=== PATIENT | male | born 1935 | race Caucasian/White ===

== ENCOUNTER 2019-07-18 15:48 | Inpatient (IN) ==
[2019-07-18] MEDS ORDERED: NS 1,000 ML IV PRN (16:08)
[2019-07-18 18:33] LABS: ALLEN TEST YES; BE 3.3 mmoll (-3.0-3.0); BLOOD TYPE ARTERIAL; HCO3-(ACT) 27.5 mmoll (20.0-26.0); O2(CT) 13.1 mL/dL (15.0-23.0); PCO2(98.6) 35 mmHg (35-45); PO2(98.6) 80 mmHg (60-100); SAMPLE BLOOD; SAO2 98.9 % (95.0-100.0); THB 9.7 g/dL (11.5-17.4); pH(98.6) 7.49 (7.35-7.45)
[2019-07-18 18:34] LABS: MODALITY ROOM AIR
--- NOTE | 2019-07-18 19:20 | HISTORY AND PHYSICAL ---
CHIEF COMPLAINT: Confused, disoriented, hallucinating, very weak. 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 He has been seeing Dr. Scanlon and has been undergoing chemotherapy. He has not been able to have chemotherapy in the last 2 weeks due to his progressively worsening condition. He has very extensive disease in the right upper lobe of his lung, right hilar and axillary lymphadenopathy, hepatic hypodensity. A PET scan done March 2019 revealed right upper lobe pulmonary disease, right hilar, right axillary pulmonary disease with positive nodes in the right gluteal and femoral muscles. He has had radiation to the femoral and gluteal area. He has been on palliative chemotherapy Abraxane, carboplatin and Keytruda since 05/02/2019. Today his condition worsened so severely he could not go in to see Dr. Scanlon. He had fallen in the floor. He has not eaten or drank. He is very confused and disoriented. His , who is the principal associate application developer, has really been struggling to provide care for him. He is admitted for further evaluation, treatment and consideration for hospice care. PAST MEDICAL HISTORY: Surgery. Had a radical prostatectomy in 2000. Medical illnesses. He has had the known squamous cell carcinoma of the lung as stated, severe degenerative joint disease. He has had pulmonary hypertension, chronic dyspnea, aortic dilatation with the aorta measuring 2.3 x 21 cm, mitral regurgitation, tricuspid regurgitation, chronic atrial fibrillation, longstanding hypertension. CURRENT MEDICATIONS: Include Lasix 40 mg 1 or 2 a day, aspirin 81 mg a day, Bystolic 10 mg a day, Nitrostat 0.4 mg p.r.n., Adcirca 20 mg b.i.d., Lipitor 20 mg a day, Tyvaso 9 puffs 4 times a day, Lanoxin 0.25 mg a day, Celebrex 20 mg p.r.n. ALLERGIES: To Dial soap. No known drugs. SOCIAL HISTORY: He retired from [employer]. He has 2 children 1 boy, 1 girl. Has a daughter and grandson that live with him. He stopped smoking in 1987. Occasional alcohol use. As stated allergies to no known drugs. FAMILY HISTORY: He has 1 brother living at age 93. His mother at age 83, his dad as an alcoholic of a CVA at age 60. He served in the [employer] from 1955 to 1959. PHYSICAL EXAMINATION: GENERAL: Shows a very frail appearing white male, somewhat confused and disoriented. Height 72 inches, weight 193 pounds, temperature 97 degrees, pulse 86, blood pressure 173/89. TMs are clear. Pupils equally round, reactive. Nasal mucosa is moist. Oropharynx clear. LUNGS: Show overall shallow breath sounds. In the right posterior scapular area is a very large soft tissue density, very firm in nature. ABDOMEN: Soft, nontender, no masses. HEART: With a regular rate and rhythm, 2/6 systolic ejection murmur. GENITOURINARY: Normal male. Bilaterally descended testicles. MUSCULOSKELETAL: Neurologically he is confused and disoriented as stated, he is very frail, cannot walk, cannot stand. He has marked tenting of the skin of his hands and feet. LABORATORY DATA: Pending. IMPRESSION: 1. Advanced metastatic squamous cell lung cancer. He has been undergoing palliative chemo but has been too weak to have chemo for the last 2 weeks. 2. He is now having mental status change. This could be a progression of the tumor into his brain. 3. Could also be simple dehydration/sepsis/urinary tract infection. 4. The family is very interested in pursuing hospice care. We will discuss this with the patient himself. PLAN: 1. We will discuss hospice. 2. We will obtain blood cultures, urine cultures. 3. We will start Zosyn. 4. Will attempt to get a CT of the head tonight without contrast. 5. We will encourage and discuss the options of hospice with the patient. cc: Aleksnadar Austin MD [facility]
--- NOTE | 2019-07-18 19:24 | Diag Imaging Result Doc PS360 ---
EXAM: CHEST-PORTABLE 07/18/2019 HISTORY: dyspnea TECHNIQUE: AP portable upright at 1917 COMMENT: There is alveolar opacity in the inferior right upper lobe which was also the case on 05/05/2019. The inspiration is less optimal than on the previous study. There is a Port-A-Cath on the left with its tip in the superior vena cava which has not changed. The heart size is enlarged. This is also stable in appearance. IMPRESSION: Stable chest. Electronically signed by Sean Oro 07/18/2019 7:22 PM
[2019-07-18] MEDS ORDERED: ZOFRAN IV PRN (19:34)
[2019-07-18] MEDS: ZOSYN 3.375 GM in NS 50 ML IV SCH (19:35)
[2019-07-18 20:40] LABS: BASO# 0.02 X1000 (0.0-0.2); BASO% 0.2 % (0.0-0.8); EOS# 0.38 X1000 (0.0-0.7); EOS% 3.4 % (0.0-10.0); HEMATOCRIT 31.1 % (42.0-52.0); HEMOGLOBIN 9.3 g/dL (14.0-18.0); LYMPH# 1.02 X1000 (1.2-3.4); LYMPH% 9.1 % (20.5-51.1); MCH 28.6 PG (27-31); MCHC 29.9 g/dL (33-37); MCV 95.7 FL (81-99); MONO# 0.77 X1000 (0.11-0.59); MONO% 6.9 % (1.7-9.3); NEUT% 80.4 % (42.2-75.2); PLT 246 X1000 (130-400); RBC 3.25 XMIL (4.7-6.1); RDW 18.3 % (11.5-14.5); WBC 11.19 X1000 (4.8-10.8)
[2019-07-18 21:26] LABS: ALB/GLOB RATIO 0.6; ALBUMIN 2.5 g/dL (3.5-5.0); CALCIUM 13.5 mg/dL (8.8-10.2); CREATININE 1.5 mg/dL (0.7-1.2); POTASSIUM 5.6 mmol/L (3.5-5.1); TOTAL BILIRUBIN 0.46 mg/dL (0.20-1.00); TOTAL PROTEIN 6.6 g/dL (6.3-8.3)
[2019-07-18] MEDS: MORPHINE IV PRN (22:55)
[2019-07-18] MEDS: TYLENOL PO PRN (22:55)
[2019-07-19] MEDS: ZOSYN 3.375 GM in NS 50 ML IV SCH ×4 (01:47→20:41)
[2019-07-19] MEDS: MORPHINE IV PRN ×3 (05:09→23:54)
[2019-07-19] MEDS: TYLENOL PO PRN ×2 (06:29→23:55)
--- NOTE | 2019-07-19 07:36 | Diag Imaging Result Doc PS360 ---
EXAM: CT HEAD W/O CONTRAST HISTORY: encephalopathy TECHNIQUE: CT head without contrast COMPARISON: None. FINDINGS: No parenchymal hemorrhage. No epidural or subdural hematoma. No subarachnoid hemorrhage. There are chronic microvascular ischemic changes. No mass identified on this noncontrasted exam. No hydrocephalus. No sinus opacification. IMPRESSION: 1.No hemorrhage 2.Chronic microvascular ischemic changes 3.A preliminary report was given at 11:31 PM on 07/18/2018 This exam was performed using automated exposure control, adjustment of mA or kV according to patient size, and/or use of iterative reconstruction technique. Electronically signed by Quirino Mcmillan 07/19/2019 7:33 AM
[2019-07-19 08:45] LABS: BASO# 0.02 X1000 (0.0-0.2); BASO% 0.2 % (0.0-0.8); EOS# 0.39 X1000 (0.0-0.7); HEMATOCRIT 30.5 % (42.0-52.0); HEMOGLOBIN 8.9 g/dL (14.0-18.0); LYMPH# 0.86 X1000 (1.2-3.4); LYMPH% 8.8 % (20.5-51.1); MCH 27.6 PG (27-31); MCHC 29.2 g/dL (33-37); MCV 94.4 FL (81-99); MONO# 0.51 X1000 (0.11-0.59); MONO% 5.2 % (1.7-9.3); MPV 8.7 FL (7.4-10.4); NEUT# 7.95 X1000 (1.4-6.5); NEUT% 81.8 % (42.2-75.2); PLT 239 X1000 (130-400); RBC 3.23 XMIL (4.7-6.1); RDW 17.8 % (11.5-14.5); WBC 9.73 X1000 (4.8-10.8)
[2019-07-19 09:11] LABS: ALB/GLOB RATIO 0.6; ALBUMIN 2.2 g/dL (3.5-5.0); CREATININE 1.5 mg/dL (0.7-1.2); POTASSIUM 4.5 mmol/L (3.5-5.1); TOTAL BILIRUBIN 0.48 mg/dL (0.20-1.00); TOTAL PROTEIN 6.1 g/dL (6.3-8.3)
[2019-07-19 09:16] LABS: CALCIUM 13.1 mg/dL (8.8-10.2)
[2019-07-19] MEDS ORDERED: ZOMETA 4 MG in NS 100 ML IV ONE (12:30)
[2019-07-19] MEDS ORDERED: XGEVA SUBQ ONE (12:45)
--- NOTE | 2019-07-19 17:36 | HEMO/ONC CONSULTATION ---
DATE: 07/19/2019 REASON FOR CONSULTATION: This is a patient of ours for the treatment of metastatic squamous cell lung cancer. HISTORY OF PRESENT ILLNESS: This is an 84-year-old male with metastatic squamous cell lung cancer who has been progressively worsening over the last 2 weeks. His states that for several days she has had difficulty helping him and he has become more confused, disoriented, and weak. She states he has been having some hallucinating. His is his primary clinical research scientist. The patient was supposed to come into the office yesterday for evaluation and treatment and had a significant fall. He has not been able to eat or drink in a few days. His has been struggling to provide care for him. They called their family doctor who admitted him for further evaluation and consideration for hospice. The patient was diagnosed in March of last year with an upper lobe mass, right hilar and axillary lymphadenopathy. His PET scan showed metastasis as well to the right gluteal and femoral muscles. He was started on palliative chemotherapy with Abraxane, carboplatin, and Keytruda on May 02, 2019. His treatments were every 3 weeks. His last full treatment was on June 20 and then on July 11 he received Keytruda only. The patient has been on Procrit protocol in the office for chemotherapy-induced anemia. PAST MEDICAL HISTORY: Radical prostatectomy in 2000, severe DJD, pulmonary hypertension, chronic dyspnea, aortic dilatation with aorta measuring 2.3 x 21 cm, mitral regurgitation, tricuspid regurgitation, chronic atrial fibrillation, and longstanding hypertension. CURRENT MEDICATIONS: Lasix, aspirin, Bystolic, Nitrostat, Adcirca, Lipitor, Tyvaso, Lanoxin, and Celebrex. ALLERGIES: No known drug allergies. SOCIAL HISTORY: Stopped smoking in 1987. Occasional alcohol use. REVIEW OF SYSTEMS: The patient denies any particular symptoms this morning, except for pain to his bottom. Wound care was consulted to look at the patient's sacrum. All other review of systems negative. Pertinent positives are noted in the HPI. PHYSICAL EXAMINATION: Vital Signs: Temperature 97.7 degrees, pulse rate 66, respiratory rate 17, blood pressure 136/48, O2 saturation 100% on room air. He is in 0/10 pain. General: Chronically ill-appearing, elderly gentleman. HEENT: PERRLA. Oral mucosa is normal. Sclerae anicteric. Cardiovascular: Normal S1, S2. Heart rate and rhythm regular. Respiratory: Diminished breath sounds throughout. Upper lungs clear. Gastrointestinal: Abdomen is soft, nontender, nondistended. No masses noted. Neurological: Alert and oriented x3 this morning. states that this is a significant difference from yesterday. LABORATORY: WBCs 9.73, hemoglobin 8.9, hematocrit 30.5, platelet count 239,000. Potassium 4.5, creatinine 1.5, calcium 13.1. RADIOLOGY: Head CT: 1) No hemorrhage. 2) Chronic microvascular ischemic changes. Chest x-ray: Normal chest. ASSESSMENT AND PLAN: 1. Advanced metastatic squamous cell lung cancer. The patient has been undergoing palliative chemotherapy for the past several months. However, he has been too weak to receive full therapy since 06/20 and he has received 1 dose of immunotherapy on 07/11/2019. We will continue to monitor the patient and evaluate his labs. 2. Hypercalcemia of malignancy. 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 He has been given 1 dose of Xgeva today which should help lower his calcium. The patient does not have bone metastasis. 3. Mental status change. This seems to have improved since yesterday. It was my understanding the patient was very confused and disoriented. Today he is able to carry on an appropriate conversation and answer questions appropriately. 4. Possible hospice care. The family would like to discuss pursuing hospice with the patient. Hospice nurse has been consulted. 5. Chemotherapy-induced anemia. The patient is on Procrit protocol. He could benefit from a shot since his hemoglobin is below 10 at this time. Dictated by CAROL Monteiro for Kb Scanlon MD As above. Progressive lung cancer, now with hypercalcemia of malignancy. Proceed with Xgeva today. Family discussing Hospice. Questions answered. Hospice consult placed. Kb Scanlon MD cc: MD Aleksandar Bland MD [facility]
[2019-07-20] MEDS: ZOSYN 3.375 GM in NS 50 ML IV SCH ×2 (02:12→08:19)
[2019-07-20] MEDS: MORPHINE IV PRN (10:28)
--- NOTE | 2019-07-20 11:50 | PROGRESS NOTE ---
DATE: 07/19/2019 TIME: 1230 hours. CHIEF COMPLAINT: None, feeling better. LABORATORY DATA: White blood count was 9.73, hemoglobin and hematocrit 8.9 and 30.5 respectively, MCV 94.4. Sodium 136, potassium 4.5, BUN and creatinine 29 and 1.5 respectively. Calcium level 13.1. Total protein 6.1. MICROBIOLOGY/CULTURES: Negative to date. PHYSICAL EXAMINATION: Vital Signs: Temperature 98 degrees, heart rate 80, respirations 16 to 20, O2 saturation on room air 94% to 100%. Urine output 1195 mL. Percent of p.o. intake 50% of food. General: The patient is awake and alert. He is much more responsive. is at bedside. Lungs: Clear. Heart: Regular rate and rhythm. Abdomen: Soft. Musculoskeletal/Neurologic: He does move all extremities with some difficulty. Moving creates increased pain. He has no peripheral edema, clubbing, or cyanosis. He does have some early-stage tissue breakdown in the thoracic and pelvic area. IMPRESSION: 1. Metastatic squamous cell carcinoma of the lung with multiple metastases. He is end stage. He and his family have had long discussions along with myself about hospice care. They elect to proceed with hospice care. Hospice will see the patient this afternoon for further evaluation. 2. Will continue intravenous fluids and antibiotic therapy [address] Scanlon saw the patient in consultation. He did receive treatment for the hypercalcemia of malignancy. PLAN: 1. Hospice care. 2. Will tentatively plan to stop antibiotics, Treviño, and IV fluids tomorrow. 3. Will tentatively plan for discharge home on . 4. They will meet with hospice this afternoon. cc: Aleksandar Austin MD
--- NOTE | 2019-07-20 11:51 | PROGRESS NOTE ---
DATE: 07/20/2019 CURRENT TIME: 1120 hours. CHIEF COMPLAINT: None, feels well, ready to go home. MICROBIOLOGY: No growth, urine and blood x2, x48 hours. LABORATORY DATA: Today's lab is pending. OBJECTIVE: Vital Signs: Temperature is 98.2, pulse is 70, respiratory rate 16 and nonlabored, blood pressure 143/61, O2 saturation 100% on room air. General: The patient is awake and alert, and he responds appropriately to questions. He talks openly about ready to . He is looking forward to getting home. Lungs: Clear. HEENT: There is the obvious soft tissue mass in the left scapular area. Heart: Regular rate and rhythm. Abdomen: Soft. : Treviño is in place, draining clear urine. Musculoskeletal/Neurologic: He does respond appropriately to questions. He is neurologically intact. He does move extremities with great difficulty due to pain. IMPRESSION: End-stage metastatic squamous cell carcinoma of the lung. PLAN: 1. Home with hospice care on . 2. Will discontinue IV fluids. 3. Will stop antibiotic therapy. 4. We will discontinue Treviño, with straight catheterization if the patient is unable to void. -9 cc: Aleksandar Austin MD
--- NOTE | 2019-07-20 17:21 | HEMO/ONC PROGRESS NOTE ---
DATE: 07/20/2019 SUBJECTIVE: The patient has been made a hospice patient. He feels well. He denies any pain. There were no acute events overnight. The patient had a good night's sleep. OBJECTIVE: Vital signs: Temperature 97.6 degrees, pulse rate 53, respiratory rate 18, blood pressure 155/42, O2 saturation 100% on room air. He is in 0/10 pain. General: Elderly, chronically ill-appearing gentleman in no acute distress. HEENT: PERRLA. Oral mucosa is normal. Sclerae anicteric. Cardiovascular: Normal S1, S2. Heart rate and rhythm regular. Respiratory: Diminished breath sounds throughout. Clear otherwise. Gastrointestinal: Abdomen is soft, nontender, nondistended. : Treviño catheter in place. Urine is clear. Neurological: Answers questions appropriately. A O x3. LABORATORY: No labs drawn today. ASSESSMENT AND PLAN: 1. End-stage metastatic squamous cell carcinoma to the lung. The patient has been undergoing palliative care, chemotherapy for the past several months. He now has progressive lung cancer with hypercalcemia of malignancy. The patient and family had decided on hospice care. They will go home with hospice care on . 2. Hypercalcemia malignancy. The patient was given 1 dose of Xgeva yesterday. That should help lower his calcium. 3. Mental status change. This appears to have improved. The patient is conversing appropriately. 4. Disposition. The patient will go home on with hospice care. Dictated by CAROL Monteiro for Kb Scanlon MD cc: MD Aleksandar Bland MD
[2019-07-21] MEDS: MORPHINE IV PRN (08:08)
[2019-07-21 11:23] VITALS: BP 137/54
--- NOTE | 2019-07-21 13:18 | PROGRESS NOTE ---
DATE: 07/21/2019 TIME: 1230 hours. CHIEF COMPLAINT: None VITAL SIGNS: Temperature 97.5 degrees, pulse 70, respirations 16, blood pressure 137/54, and O2 saturation 98% on room air. Input and output, recent catheterization of his bladder reveals 200 mL. MICROBIOLOGY: The microbiology is all negative after 48 hours. HOSPITAL COURSE: An 84-year-old white male, admitted for metastatic squamous cell carcinoma of the lung. PHYSICAL EXAMINATION: General: The patient is awake and alert. Responds appropriately. is at bedside. Arrangements for hospice have been made, and he is ready for discharge. Lungs: Clear. Heart: Regular rate and rhythm. Abdomen: Soft. Musculoskeletal: Shows a trace of edema diffusely. IMPRESSION AND PLAN: End-stage metastatic squamous cell carcinoma of the lung. The patient is now being discharged home to hospice care. Questions have been entertained with he and his . Please see Discharge Summary. cc: Aleksandar Austin MD
--- NOTE | 2019-07-21 15:13 | DISCHARGE SUMMARY ---
ADMISSION DATE: 07/18/2019 DISCHARGE DATE: 07/21/2019 PRIMARY DISCHARGE DIAGNOSIS: End-stage metastatic squamous cell carcinoma of the lung. OTHER DIAGNOSES: 1. Mild mental status change. 2. Urinary retention. 3. Severe pain syndrome. 4. Stage I decubitus of the back and hips. DISPOSITION: The patient will be discharged home via ambulance. Hospice [facility] has been consulted. Durable medical equipment has been placed in the home. Long discussion was made with the family. The patient is a Do Not Resuscitate 1. LABORATORY DATA: At time of discharge, white blood count was 9.73, hemoglobin and hematocrit 8.9 and 30.5 respectively. Sodium 136, potassium 4.5, BUN and creatinine 29 and 1.5 respectively. Calcium was 13.1. All cultures were negative. CT of the head demonstrated no acute hemorrhage, chronic microvascular cell changes. No tumor or metastasis in the brain. Chest x-ray showed alveolar opacity in the inferior right upper lobe previously noted on 05/05/2019. HOSPITAL COURSE: The patient was admitted. Cultures were obtained which proved negative. IV fluids of normal saline were started. Patient was empirically started on Zosyn. Overall his condition improved. He was found to have slightly elevated calcium. This was treated appropriately. Discussion was made with the patient, , daughter, and son regarding hospice care. They are all in agreement. Hospice [facility] was consulted. Arrangements are made for him to be discharged home. cc: Aleksandar Austin MD
== END 2019-07-21 15:35 | disposition hospice, home (50) | DRG 181 ==
LOC: DIRADM 15:48 → 4N 18:06
PROVIDERS: ADMIT Family Medicine; ATTEND Family Medicine